=== PATIENT | female | born 1990 | race Caucasian/White ===

== ENCOUNTER 2019-05-31 11:30 | Inpatient (IN) | payer OTHER ==
--- NOTE | 2019-06-05 15:05 | HP ---
HISTORY OF PRESENT ILLNESS: Ms. Contreras is a very pleasant 29-year-old woman here today for evaluation of a 16-year history of lower back problems starting when she broke her lumbar spine in adolescence. This resulted in a spinal fusion, which then failed followed by revision and in 2017, she had yet another revision with ALIF and extension to L3 resulting in an L3-S1 construct. She presents today as over the last three weeks she started to feel motion and pain in her lumbar spine. She describes a "floating and slipping" sensation, which she has had before the 2017 revision. When this sensation began, she developed severe pain and cramping in the anterior thighs bilaterally. She has had pain management interventions in the past, which have helped. Most recently, our physicians have referred her directly to us citing surgical pathology. MRI from my PA reveals fusion construct and interbody grafts from L3-S1, but no major foraminal or central canal narrowing. She does have a mild retrolisthesis at L2-L3, which according to the report, spinal flexion-extension views moved some 4 to 5 mm with flexion. PHYSICAL EXAMINATION: NEUROLOGIC: She is alert and oriented x3. Gait is normal. No ataxia. EXTREMITIES: Lower extremity motor exam is normal. PAST MEDICAL HISTORY: Significant for chronic pain syndrome and migraine headaches. PAST SURGICAL HISTORY: Lumbar fusion x3. CURRENT MEDICATIONS: 1. Percocet. 2. Flexeril. ALLERGIES: NO KNOWN DRUG ALLERGIES. ASSESSMENT: Lumbar spondylolisthesis and spinal instability with history of fusion. PLAN: Dr. Joseph met with the patient, reviewed imaging, and advocated for removal of hardware, exploration of fusion and extension of fusion to L2. He explained to the patient the risks, benefits, and alternatives to the procedure. The patient expressed understanding and elected to move forward with surgery as discussed. I do believe the patient is mentally competent and capable of making medical decisions for herself. We will move forward with surgery as planned. Job ID: [id number]
[2019-06-06] MEDS ORDERED: Dexamethasone 20 MG/5 ML VIAL ONE (09:54)
[2019-06-06] MEDS ORDERED: PROPOFOL 200 MG/20 ML VIAL ONE (09:54)
[2019-06-06] MEDS ORDERED: Ondansetron PF 4 MG/2 ML Vial ONE (09:54)
[2019-06-06] MEDS ORDERED: Rocuronium Bromide 10 MG/ML (10ML VIAL) ONE (09:54)
[2019-06-06] MEDS ORDERED: Lidocaine 1% PF 5 ML VIAL ONE (09:54)
[2019-06-06] MEDS ORDERED: Glycopyrrolate 0.2 MG/ML 5 ML SYRINGE ONE (09:54)
[2019-06-06] MEDS ORDERED: Scopolamine 1.5 mg/72 hour Patch TOP SCH (10:10)
[2019-06-06] MEDS ORDERED: Midazolam HCl 2 mg/2 ml Vial IVP SCH (10:10)
[2019-06-06] MEDS ORDERED: Midazolam HCl 2 mg/2 ml Vial ONE ×2 (10:27→11:37)
[2019-06-06] MEDS ORDERED: Scopolamine 1.5 mg/72 hour Patch ONE (10:27)
[2019-06-06] MEDS ORDERED: Bupivacaine PF 0.5% 30 ML VIAL ONE (11:15)
[2019-06-06] MEDS ORDERED: Fentanyl 100 MCG/2 ML VIAL ONE ×4 (11:38→16:18)
[2019-06-06] MEDS ORDERED: HYDROmorphone 0.5 MG/0.5 ML SYRINGE ONE ×2 (13:00→14:11)
[2019-06-06] MEDS ORDERED: diphenhydrAMINE 50 MG/ML VIAL IVP PRN (14:23)
[2019-06-06] MEDS ORDERED: Mag-Al 1200 mg/1200 mg/30 ML UDCUP PO PRN (14:23)
[2019-06-06] MEDS ORDERED: Acetaminophen 325 MG TAB PO PRN (14:23)
[2019-06-06] MEDS ORDERED: Bisacodyl 10 MG SUPP PR PRN (14:23)
[2019-06-06] MEDS ORDERED: HYDROcodone/Acetaminophen 10/325 mg Tablet PO PRN (14:25)
[2019-06-06] MEDS ORDERED: Promethazine HCl 25 MG/ML VIAL IM PRN (14:33)
[2019-06-06] MEDS ORDERED: Promethazine HCl 25 MG/ML VIAL SLOW IVP PRN (14:33)
[2019-06-06] MEDS ORDERED: HYDROmorphone 2 MG/ML VIAL SLOW IVP PRN (14:33)
[2019-06-06] MEDS ORDERED: Ondansetron HCl/PF 4 MG/2 ML Vial IVP PRN (14:33)
--- NOTE | 2019-06-06 14:33 | OP ---
DATE OF PROCEDURE: 06/06/2019 COMPUTATIONAL PHYSICIST: Schuyler Huang PA-C INDICATION: Pain. DIAGNOSIS: Adjacent segment degenerative spine disease, fractured pedicle screw, and low back pain. PROCEDURE PERFORMED: Reoperation of removal of posterior nonsegmental instrumentation, exploration of fusion, lumbar posterolateral instrumented fusion L2-L3, removal of hardware from L4 through S1, placement of allograft, and placement of autograft. ANESTHESIA: General. DESCRIPTION OF PROCEDURE: The patient was brought into the operating room and placed under general anesthesia. She was flipped from the supine to prone position on the operating room table. Her old incision site was identified and prepped and draped. After an appropriate perioperative pause, the incision was created. The soft tissues were swept away from midline. Her hardware construct from her prior surgery performed posteriorly was identified. A crosslink was removed as where the pedical screws, which expanded L4, L5, and S1 bilaterally. The ankita was removed bilaterally that expanded L3 through S1 bilaterally. Ectopic bone as well as a small degree of fusion mass was removed posteriorly around the hardware. After removing the hardware, the L3 pedicle screws were left in from prior instrumentation construct. The new pedicle screws were placed at L2 with the aid of C-arm fluoroscopy. An intraoperative 3D CT scan was performed, which revealed excellent placement of the hardware. Rods were then placed across the screw heads of L2 and L3 and final tightened with set screws. Allograft and autograft material were then placed in the lateral confines of the instrumentation construct. The wound was irrigated. Hemostasis was maintained throughout. The wound was then closed in anatomic layers and a pressure dressing was applied. There were no known procedural complications. Job ID: [id number]
[2019-06-06] MEDS ORDERED: HYDROmorphone 2 MG/ML VIAL ONE (14:49)
[2019-06-06] MEDS: Morphine 2 MG/ML SYRINGE SLOW IVP PRN ×6 (17:00→22:47)
[2019-06-06] MEDS: Sodium Chloride 0.9% 1,000 ML IV SCH (17:02)
[2019-06-06] MEDS: Ondansetron PF 4 MG/2 ML Vial IVP SCH (18:00)
[2019-06-06] MEDS: Cyclobenzaprine 10 MG TAB PO PRN (18:59)
[2019-06-06] MEDS: HYDROcodone/Acetaminophen 10/325 mg Tablet PO PRN ×2 (19:00→23:04)
[2019-06-06] MEDS: oxyCODONE/Acetaminophen 5 mg/325 mg Tablet PO SCH (20:32)
[2019-06-06] MEDS: CEFAZOLIN 2 GM in Premix Bag 1 BAG IVPB SCH (21:00)
[2019-06-06] MEDS: Acetaminophen 1,000 MG in Premix Bag 1 BAG IVPB SCH (23:07)
[2019-06-07] MEDS: Morphine 2 MG/ML SYRINGE SLOW IVP PRN ×16 (00:14→22:14)
[2019-06-07] MEDS: Ondansetron PF 4 MG/2 ML Vial IVP SCH ×4 (00:15→18:23)
[2019-06-07] MEDS: Sodium Chloride 0.9% 1,000 ML IV SCH ×2 (01:18→20:17)
[2019-06-07] MEDS: HYDROcodone/Acetaminophen 10/325 mg Tablet PO PRN ×6 (03:35→20:39)
[2019-06-07] MEDS: CEFAZOLIN 2 GM in Premix Bag 1 BAG IVPB SCH (03:36)
[2019-06-07] MEDS: Cyclobenzaprine 10 MG TAB PO PRN ×5 (03:36→22:12)
[2019-06-07] MEDS: Acetaminophen 1,000 MG in Premix Bag 1 BAG IVPB SCH ×2 (05:34→18:31)
[2019-06-07 06:00] LABS: #Lymphocytes 1.3 thou/uL (1.20-3.40); #Monocytes 0.9 thou/uL (0.11-0.59); #Neutrophils 12.4 thou/uL (1.40-6.50); %Basophils 0.2 % (0.0-1.0); %Lymphocytes 9.1 % (21.0-51.0); %Monocytes 5.9 % (0.0-10.0); %Neutrophils 84.8 % (42.0-75.0); Hemoglobin 11.9 g/dL (12.0-16.0); Mean Corpuscular HGB CONC 34.3 g/dL (32.0-36.0); Mean Corpuscular Hemoglobin 32.6 pg (27.0-31.0); Mean Corpuscular Volume 95.2 fL (78.0-98.0); Mean Platelet Volume 7.6 fL (7.4-10.4); Platelet Count 236 thou/uL (130-400); RBC Distribution Width 11.2 % (11.5-14.5); Red Blood Cell (RBC) Count 3.66 mill/uL (4.20-5.40); White Blood Cell (WBC) Count 14.6 thou/uL (4.8-10.8)
[2019-06-07 06:19] LABS: Anion Gap 10 mmol/L (10-20); BUN (Urea Nitrogen) 9 mg/dL (7.0-18.7); Calc. Creatinine Clearance 103 mL/min (70-130); Calcium 8.6 mg/dL (7.8-10.44); Carbon Dioxide 25 mmol/L (22-29); Chloride 108 mmol/L (98-107); Estimated GFR-MDRD 85; Glucose 157 mg/dL (70-105); Potassium 4.2 mmol/L (3.5-5.1); Sodium 139 mmol/L (136-145)
--- NOTE | 2019-06-07 08:17 | PRG ---
DATE OF SERVICE: 06/07/2019 Ms. Contreras is postop day #1, following lumbar fusion revision and extension. She is doing well, but does report significant pain which I do not think is surprising given the degree of soft tissue and muscular insult that was done during the case to remove her hardware. She has no incisional drainage concern. She has been out of bed to go to the restroom, but reports significant pain when doing so. She is actually reasonably well controlled with the pain medication regimen that we have in place for her, although we will make some adjustments this morning to add anti-inflammatory and change the dose schedule for her medications. We still need to have PT and OT work with her. I think it is reasonable that she will stay one more night just to better improve her mobility and then plan for discharge tomorrow. Job ID: [id number]
[2019-06-07] MEDS: oxyCODONE/Acetaminophen 5 mg/325 mg Tablet PO PRN ×2 (10:29→22:13)
[2019-06-07] MEDS: Ketorolac Tromethamine 30 MG/ML VIAL IVP SCH ×2 (11:29→19:40)
[2019-06-08] MEDS: HYDROcodone/Acetaminophen 10/325 mg Tablet PO PRN ×5 (00:58→12:57)
[2019-06-08] MEDS: Ondansetron PF 4 MG/2 ML Vial IVP SCH ×3 (01:12→12:10)
[2019-06-08] MEDS: Morphine 2 MG/ML SYRINGE SLOW IVP PRN ×7 (01:13→11:02)
[2019-06-08] MEDS: Ketorolac Tromethamine 30 MG/ML VIAL IVP SCH ×2 (02:37→07:59)
[2019-06-08] MEDS: Sodium Chloride 0.9% 1,000 ML IV SCH (04:30)
[2019-06-08] MEDS: oxyCODONE/Acetaminophen 5 mg/325 mg Tablet PO SCH (06:24)
[2019-06-08] MEDS: Cyclobenzaprine 10 MG TAB PO PRN ×2 (06:49→11:02)
--- NOTE | 2019-06-08 10:57 | PRG ---
DATE OF SERVICE: 06/08/2019 Ms. Contreras is now 2 days status post reoperation with removal of hardware, exploration of fusion and extension of fusion at L2. She has been mobilizing slowly with a walker. She has anticipated postsurgical back pain. The plan is to discharge her home today. I had a conversation with her about discharging her home today as well as the medications and perioperative care. Our plan is to follow up with her in the [place] area in the middle of June. My plan is to send in her prescriptions electronically to her local pharmacy. Neurologically, she is back at baseline without any neurologic deficit. Job ID: [id number]
[2019-06-08 11:51] VITALS: BP 86/51; TEMP 98.8
[2019-06-08] MEDS: oxyCODONE/Acetaminophen 5 mg/325 mg Tablet PO PRN (12:11)
== END 2019-06-08 13:09 | disposition home or self-care (01) | DRG 460 ==
LOC: SURG A 06-06 08:04 → 3SE 06-06 16:35
PROVIDERS: ADMIT Neurological Surgery; ATTEND Neurological Surgery
PROC: 0SG0071 Fusion of Lumbar Vertebral Joint with Autologous Tissue Substitute, Posterior Approach, Posterior Column, Open Approach (ICD-10-PCS; principal; 2019-06-06)
PROC: 0QP004Z Removal of Internal Fixation Device from Lumbar Vertebra, Open Approach (ICD-10-PCS; 2019-06-06)
PROC: 0QP104Z Removal of Internal Fixation Device from Sacrum, Open Approach (ICD-10-PCS; 2019-06-06)
DX: T84.216A Breakdown (mechanical) of internal fixation device of vertebrae, initial encounter (principal); M53.2X6 Spinal instabilities, lumbar region; M43.16 Spondylolisthesis, lumbar region; G89.4 Chronic pain syndrome; G43.909 Migraine, unspecified, not intractable, without status migrainosus; M51.36 Other intervertebral disc degeneration, lumbar region; Y83.1 Surgical operation with implant of artificial internal device as the cause of abnormal reaction of the patient, or of later complication, without mention of misadventure at the time of the procedure; Z79.899 Other long term (current) drug therapy
CPT/HCPCS: 36415; 76000; 80048; 85025; C1713; J0690; J1100; J1170; J1885; J2001; J2250; J2270; J2405; J2704; J3010; S0020